=== PATIENT | male | born 1960 | race Caucasian/White ===

== ENCOUNTER 2019-04-01 10:48 | Emergency (ER) | payer OTHER ==
[~2019-04-01] VITALS: Ht 172.7 cm; Wt 95.3 kg
[~2019-04-01 10:48] MED LIST: AVALIDE 300-251 TAB
== END 2019-04-01 17:55 | disposition home or self-care (01) ==
LOC: ER 10:48
DX: K52.9 Noninfective gastroenteritis and colitis, unspecified (principal)

== ENCOUNTER → 2020-05-19 | Outpatient (CLI) | payer OTHER | END | disposition home or self-care (01) | LOC: PPH VACUNA | DX: Z23 Encounter for immunization (principal) ==

== ENCOUNTER 2020-06-08 15:41 | Outpatient (CLI) | payer OTHER | END 2020-06-08 15:42 | disposition home or self-care (01) | LOC: PPH VACUNA 15:41 | DX: Z23 Encounter for immunization (principal) ==

== ENCOUNTER 2020-12-15 13:00 | Outpatient (CLI) | payer OTHER | END 2020-12-15 13:15 | disposition home or self-care (01) | LOC: PPH VACUNA 13:00 | PROVIDERS: ATTEND Emergency Medicine Pediatric Emergency Medicine | DX: Z23 Encounter for immunization (principal) ==

== ENCOUNTER 2022-08-10 08:36 | Outpatient (CLI) | payer OTHER | END 2022-08-10 08:46 | disposition home or self-care (01) | LOC: RAD 08:36 | PROVIDERS: ATTEND Physical Medicine & Rehabilitation Sports Medicine | DX: M22.2X2 Patellofemoral disorders, left knee (principal) ==